=== PATIENT | male | born 2000 | race African-American/Black ===

== ENCOUNTER 2024-03-22 04:58 | Emergency (ER) | payer OTHER ==
[2024-03-22 05:12] VITALS: BP 137/79; PULSE 68; RESP 20; TEMP 97.7; BMI 25.7
[2024-03-22] MEDS: KETOROLAC TROMETHAMINE 30 MG/1 ML VIAL IM ONE (05:51)
[2024-03-22] MEDS ORDERED: KETOROLAC TROMETHAMINE 30 MG/1 ML VIAL ONE (05:53)
== END 2024-03-22 06:58 | disposition home or self-care (01) ==
LOC: JER 04:58
PROC: 3E0233Z Introduction of Anti-inflammatory into Muscle, Percutaneous Approach (ICD-10-PCS; principal; 2024-03-22)
DX: R07.9 Chest pain, unspecified (principal); M54.9 Dorsalgia, unspecified
CPT/HCPCS: 36415; 71046-TC-FY; 84484; 93005; 93010; 99285-25

== ENCOUNTER 2024-07-29 19:02 | Emergency (ER) | payer OTHER ==
[2024-07-29 19:19] VITALS: BP 129/71; PULSE 67; RESP 18; TEMP 98.5; BMI 25.8
[2024-07-29] MEDS ORDERED: KETOROLAC TROMETHAMINE 30 MG/1 ML VIAL ONE (20:10)
[2024-07-29] MEDS: KETOROLAC TROMETHAMINE 30 MG/1 ML VIAL IVPUSH ONE (20:22)
[2024-07-29] MEDS: SODIUM CHLORIDE 0.9% 500 ML INFUS.BAG IV ONE (20:23)
[2024-07-29 20:24] LABS: BASO % 0.7 % (0-2.0); EOS % 1.3 % (0-4.5); HEMATOCRIT 42.6 % (35.4-49); HEMOGLOBIN 14.8 GM/dL (11.7-16.9); LYMPH % 26.1 % (8-40); MCH 30.4 pg (25.7-33.7); MCHC 34.8 g/dl (32.0-35.9); MEAN CELL VOLUME 87.4 fl (80-96); MEAN PLT VOLUME 8.8 fl (7.5-11.1); MONO % 5.1 % (3.8-10.2); NEUT % 66.8 % (42.8-82.8); PLATELET COUNT 254 10^3/uL (134-434); RBC 4.87 M/mm3 (4.00-5.60); RDW 12.8 % (11.9-15.9); WHITE BLOOD COUNT 6.7 K/mm3 (4.0-10.0)
[2024-07-29 20:55] LABS: POTASSIUM 3.9 mmol/L (3.5-5.1)
[2024-07-29 20:56] LABS: CALCIUM 9.4 mg/dL (8.5-10.1)
[2024-07-29 20:57] LABS: ALBUMIN 4.3 g/dl (3.4-5.0); BLOOD UREA NITROGEN 7.6 mg/dL (7-18); MAGNESIUM 1.7 mg/dL (1.8-2.4)
[2024-07-29 21:01] LABS: CREATININE 0.9 mg/dL (0.55-1.3)
[2024-07-29 21:02] LABS: BILIRUBIN,TOTAL 0.6 mg/dL (0.2-1); TOT PROT 7.6 g/dl (6.4-8.2)
[2024-07-29] MEDS ORDERED: MAGNESIUM OXIDE 400 MG TABLET (FP) PO ONE (21:14)
== END 2024-07-29 21:39 | disposition home or self-care (01) ==
LOC: JER 19:02
PROC: 3E0333Z Introduction of Anti-inflammatory into Peripheral Vein, Percutaneous Approach (ICD-10-PCS; principal; 2024-07-29)
DX: R07.89 Other chest pain (principal)
CPT/HCPCS: 36415; 80053; 83735; 84484; 85025; 93005; 93010; 99284-25